=== PATIENT | male | born 1990 | race Caucasian/White ===

== ENCOUNTER 2021-08-13 14:31 | Outpatient (CLI) | payer BC | END 2021-08-13 14:32 | disposition home or self-care (01) | LOC: BICRAD 14:31 | PROVIDERS: ATTEND Orthopaedic Surgery | DX: M54.6 Pain in thoracic spine (principal); M54.50 Low back pain, unspecified; M54.2 Cervicalgia; M41.85 Other forms of scoliosis, thoracolumbar region; M47.814 Spondylosis without myelopathy or radiculopathy, thoracic region; Z98.890 Other specified postprocedural states | CPT/HCPCS: 72040; 72072; 72100 ==